=== PATIENT | male | born 1985 | race American Indian/Alaskan Native ===

== ENCOUNTER 2019-03-02 23:01 | Emergency (ER) | payer OTHER ==
[2019-03-02 23:09] VITALS: BMI 31.4
[2019-03-02 23:14] VITALS: TEMP 97.8
--- NOTE | 2019-03-03 00:58 | ED PDOC ---
Arrival/HPI - General Chief Complaint: Back Pain Time Seen by Provider: 03/02/19 23:21 Historian: Patient - History of Present Illness Narrative History of Present Illness (Text): 03/03/19 00:55 A 33 year old male presents to the emergency department complaining of low- midline back pain for over 10 years, states he slipped and fell back in 2007. Patient reports he has seen pain management doctor for pain, however takes no medications for it. States he does not have difficulty ambulating. Patient denies any numbness/weakness, no bowel/bladder dysfunction, or any other complaints at this time. Past Medical History - Provider Review Nursing Documentation Reviewed: Yes - Cardiac Hx Hypertension: Yes - Psychiatric Hx Depression: Yes Hx Substance Use: No - Surgical History Other/Comment: sx in left hand - Anesthesia Hx Anesthesia: Yes Hx Anesthesia Reactions: No Hx Malignant Hyperthermia: No Family/Social History - Physician Review Nursing Documentation Reviewed: Yes Family/Social History: No Known Family HX Smoking Status: Current Some Days Smoker Hx Alcohol Use: No Hx Substance Use: No Allergies/Home Meds Allergies/Adverse Reactions: Allergies No Known Allergies Allergy (Verified 03/02/19 23:08) Review of Systems - Physician Review All systems were reviewed & negative as marked: Yes - Review of Systems Genitourinary Male: absent: Dysuria, Frequency, Hematuria, Urinary Output Changes Musculoskeletal: Back Pain (low midline region) Neurological: absent: Other (no numbness/weakness) Physical Exam Vital Signs Reviewed: Yes Vital Signs Temp Pulse Resp BP Pulse Ox 03/02/19 23:14 97.8 F 94 H 19 136/91 H 98 Temperature: Afebrile Blood Pressure: Normal Pulse: Regular Respiratory Rate: Normal Appearance: Positive for: Well-Appearing, Non-Toxic, Comfortable Pain Distress: None Mental Status: Positive for: Alert and Oriented X 3 - Systems Exam Head: Present: Atraumatic, Normocephalic Pupils: Present: PERRL Extroacular Muscles: Present: EOMI Conjunctiva: Present: Normal Mouth: Present: Moist Mucous Membranes Neck: Present: Normal Range of Motion Respiratory/Chest: Present: Clear to Auscultation, Good Air Exchange. No: Respiratory Distress, Accessory Muscle Use Cardiovascular: Present: Regular Rate and Rhythm, Normal S1, S2. No: Murmurs Abdomen: No: Tenderness, Distention, Peritoneal Signs Back: Present: Normal Inspection. No: CVA Tenderness Upper Extremity: Present: Normal Inspection. No: Cyanosis, Edema Lower Extremity: Present: Normal Inspection, Neurovascularly Intact (5/5 strength bilaterally), Other (no saddle anesthesia). No: Edema Neurological: Present: GCS=15, CN II-XII Intact, Speech Normal Skin: Present: Warm, Dry, Normal Color. No: Rashes Psychiatric: Present: Alert, Oriented x 3, Normal Insight, Normal Concentration Medical Decision Making ED Course and Treatment: 03/03/19 00:57 Impression: 33 year old male with low midline back pain. Plan: -- Reassess and disposition Progress Notes: Patient with back pain for years, no new trauma, no need for imaging at this time. Toradol IM given. Patient able to ambulate without difficulty. No leg paresthesias/weakness. No saddle anesthesia. No bowel or bladder dysfunction. Advised outpatient followup. - Medication Orders Current Medication Orders: Ketorolac Tromethamine (Toradol) 30 mg IM STAT STA Stop: 03/03/19 00:52 - Scribe Statement The provider has reviewed the documentation as recorded by the Sharad Moreno Provider Scribe Attestation: All medical record entries made by the Sirishaiblorie were at my direction and personally dictated by me. I have reviewed the chart and agree that the record accurately reflects my personal performance of the history, physical exam, medical decision making, and the department course for this patient. I have also personally directed, reviewed, and agree with the discharge instructions and disposition. Disposition/Present on Arrival - Present on Arrival Any Indicators Present on Arrival: No History of DVT/PE: No History of Uncontrolled Diabetes: No Urinary Catheter: No History of Decub. Ulcer: No History Surgical Site Infection Following: None - Disposition Have Diagnosis and Disposition been Completed?: Yes Diagnosis: Chronic back pain Disposition: HOME/ ROUTINE Disposition Time: 00:53 Condition: STABLE Discharge Instructions (ExitCare): Chronic Pain (DC), Low Back Pain (DC) Additional Instructions: FELICE QUAN, thank you for letting us take care of you today. Your provider was Kaitlynn Vitale MD and you were treated for FLANK PAIN. The emergency medical care you received today was directed at your acute symptoms. If you were prescribed any medication, please fill it and take as directed. It may take several days for your symptoms to resolve. Return to the Emergency Department if your symptoms worsen, do not improve, or if you have any other problems. Please contact your doctor or call one of the physicians/clinics you have been referred to that are listed on the Patient Visit Information form that is included in your discharge packet. Bring any paperwork you were given at discharge with you along with any medications you are taking to your follow up visit. Our treatment cannot replace ongoing medical care by a primary care provider outside of the emergency department. Thank you for allowing the [facility] team to be part of your care today. If you had an X-Ray or CT scan: A Radiologist will review the ED reading if any change in treatment is needed we will contact you. If you had a blood, urine, or wound culture: It will take several days for the results, if any change in treatment is needed we will contact you. If you had an STI test: It will take 48 hours for the results. Please call after 1 week if you have not heard back. Referrals: Dori Torres MD [Primary Care Provider] - Follow up with primary Forms: [employer] (Vietnamese)
[2019-03-03 01:04] VITALS: BP 131/72; PULSE 88; RESP 18; O2SAT 100
== END 2019-03-03 01:00 | disposition home or self-care (01) ==
LOC: ED 23:01 → MERGE 23:01 → ED 03-03 01:00
DX: M54.9 Dorsalgia, unspecified (principal); G89.29 Other chronic pain
CPT/HCPCS: 96372; 99282; J1885